=== PATIENT | female | born 1970 | race Caucasian/White ===

== ENCOUNTER 2024-10-20 13:47 | Outpatient (CLI) | payer MEDICAID, SELFPAY ==
--- NOTE | 2024-10-20 13:52 | MM_ITS ---
WS: [id number] Bilateral screening 3D tomosynthesis digital mammogram, 10/20/2024 2:07 PM Clinical Data: SCREENING Comparison: None. Findings: No spiculated masses or clustered calcifications are seen. There are no secondary signs of carcinoma . MM/MM scr BI tomosynthesis [id number] Impression: Negative bilateral mammogram with no prior exam for review. Recommend annual screening mammograms. BIRADS: 1 - Negative. FOLLOW UP: 1 Year Follow-up DENSITY: There are scattered areas of fibroglandular density. The CAD roller checker was used
== END 2024-10-20 13:48 | disposition home or self-care (01) ==
LOC: RAD 13:51
PROVIDERS: PCP Electrodiagnostic Medicine; Visit Provider Electrodiagnostic Medicine
DX: Z12.31 Encounter for screening mammogram for malignant neoplasm of breast (principal)
CPT/HCPCS: 77063; 77067